=== PATIENT | female | born 1990 ===

== ENCOUNTER 2018-08-14 02:25 | Emergency (ER) | payer MEDICAID ==
[2018-08-14 02:30] VITALS: BMI 19.3
--- NOTE | 2018-08-14 02:34 | ED PDOC ---
Arrival/HPI - General Chief Complaint: Shortness Of Breath Time Seen by Provider: 08/14/18 02:29 Historian: Patient - History of Present Illness Narrative History of Present Illness (Text): 08/14/18 02:34 Melani Rowley is a 27 year old female, whose past medical history includes asthma, who presents to the ED complaining of shortness of breath and wheezing tonight. Patient states symptoms are consistent with previous episodes of asthma. Patient denies any fever, chills, chest pain, nausea, vomiting, diarrhea, urinary symptoms, back pain, neck pain, headache, dizziness, or any other complaints. Symptom Onset: Gradual Symptom Course: Unchanged Activities at Onset: Light Context: Home Past Medical History - Provider Review Nursing Documentation Reviewed: Yes Family/Social History - Physician Review Nursing Documentation Reviewed: Yes Family/Social History: Unknown Family HX Allergies/Home Meds Allergies/Adverse Reactions: Allergies shrimp Allergy (Verified 08/14/18 02:30) ANAPHYLAXIS Review of Systems - Physician Review All systems were reviewed & negative as marked: Yes - Review of Systems Constitutional: Normal. absent: Fevers Eyes: Normal ENT: Normal Respiratory: SOB, Wheezing Cardiovascular: Normal. absent: Chest Pain Gastrointestinal: Normal. absent: Abdominal Pain, Diarrhea, Nausea, Vomiting Genitourinary Female: Normal. absent: Dysuria, Frequency, Hematuria, Urine Output Changes Musculoskeletal: Normal. absent: Back Pain, Neck Pain Skin: Normal. absent: Rash Neurological: Normal. absent: Headache, Dizziness Endocrine: Normal Hemo/Lymphatic: Normal Psychiatric: Normal Physical Exam Vital Signs Reviewed: Yes Vital Signs Pulse Resp Pulse Ox 08/14/18 02:30 102 H 20 100 Temperature: Afebrile Blood Pressure: Normal Pulse: Regular Respiratory Rate: Normal Appearance: Positive for: Well-Appearing, Non-Toxic, Comfortable Pain Distress: None Mental Status: Positive for: Alert and Oriented X 3 - Systems Exam Head: Present: Atraumatic, Normocephalic Pupils: Present: PERRL Extroacular Muscles: Present: EOMI Conjunctiva: Present: Normal Mouth: Present: Moist Mucous Membranes Neck: Present: Normal Range of Motion Respiratory/Chest: Present: Wheezes. No: Respiratory Distress, Accessory Muscle Use Cardiovascular: Present: Regular Rate and Rhythm, Normal S1, S2. No: Murmurs Abdomen: No: Tenderness, Distention, Peritoneal Signs Back: Present: Normal Inspection Upper Extremity: Present: Normal Inspection. No: Cyanosis, Edema Lower Extremity: Present: Normal Inspection. No: Edema Neurological: Present: GCS=15, CN II-XII Intact, Speech Normal Skin: Present: Warm, Dry, Normal Color. No: Rashes Psychiatric: Present: Alert, Oriented x 3, Normal Insight, Normal Concentration Medical Decision Making ED Course and Treatment: 08/14/18 02:34 Impression: 27 year old female complaining of shortness of breath and wheezing. Plan: -- Duoneb -- Solu-medrol -- Reassess and disposition Prior Visits: Notes and results from previous visits were reviewed. Progress Notes: - Medication Orders Current Medication Orders: Albuterol/Ipratropium (Duoneb 3 Mg/0.5 Mg (3 Ml) Ud) 3 ml IH Q15M MANASA Stop: 08/14/18 03:16 Discontinued Medications Methylprednisolone (Solu-Medrol) 125 mg IVP ONCE ONE Stop: 08/14/18 02:32 - Scribe Statement The provider has reviewed the documentation as recorded by the Venkata Bazan Provider Scribe Attestation: All medical record entries made by the Scribe were at my direction and personally dictated by me. I have reviewed the chart and agree that the record accurately reflects my personal performance of the history, physical exam, medical decision making, and the department course for this patient. I have also personally directed, reviewed, and agree with the discharge instructions and disposition. Disposition/Present on Arrival - Present on Arrival Any Indicators Present on Arrival: No History of DVT/PE: No History of Uncontrolled Diabetes: No Urinary Catheter: No History of Decub. Ulcer: No History Surgical Site Infection Following: None - Disposition Have Diagnosis and Disposition been Completed?: Yes Diagnosis: Asthma Disposition: HOME/ ROUTINE Disposition Time: 03:50 Condition: IMPROVED Discharge Instructions (ExitCare): Asthma in Adults Prescriptions: Fexofenadine/Pseudoephedrine [Marybel-D 24 Hour Tablet] 1 each PO DAILY #16 tab.er.24h predniSONE [predniSONE Tab] 20 mg PO TID #15 tab Albuterol HFA [Ventolin HFA] 1 puff IH QID #1 puff Forms: [email or web address] ([place])
[2018-08-14] MEDS ORDERED: Albuterol-Ipratrop 3 mg / 0.5 (3 ml) UD IH SCH (02:45)
[2018-08-14 03:00] VITALS: BP 147/86; TEMP 98
[2018-08-14 03:46] VITALS: PULSE 94; RESP 18; O2SAT 99
== END 2018-08-14 03:50 | disposition home or self-care (01) ==
LOC: ED 02:25
DX: J45.909 Unspecified asthma, uncomplicated (principal)
CPT/HCPCS: 81025; 94640; 96374; 99284; J2930